=== PATIENT | female | born 1955 | race Caucasian/White ===

== ENCOUNTER → 2023-10-02 09:38 | Outpatient (REF) | payer OTHER, SELFPAY ==
[2023-10-02 10:11] LABS: % Basophils 0.5 % (0-2); % Eosinophils 0.8 % (0-6); % Immature Granulocytes 0.3 % (0-0.5); % Lymphocytes 19.5 % (20.5-51.1); % Monocytes 7.5 % (1.7-9.3); % Neutrophils 71.4 % (42.2-75.2); Absolute Eosinophils 0.1 10^3/uL (0-0.7); Absolute Lymphocytes 1.5 10^3/uL (1.2-3.4); Absolute Monocytes 0.6 10^3/uL (0.1-0.6); Absolute Neutrophils 5.5 10^3/uL (1.4-6.5); Hematocrit 38.8 % (37.0-47.0); Hemoglobin 12.8 g/dL (12.0-16.0); Mean Corpuscular Hgb 32.2 pg (27.0-31.0); Mean Corpuscular Volume 97.5 fL (81.0-99.0); Mean Platelet Volume 8.6 fL (7.4-10.4); Nucleated Red Blood Cells % 0 %; Platelet Count 385 10^3/uL (130-400); Red Blood Cell Count 3.98 10^6/uL (4.20-5.40); White Blood Cell Count 7.7 10^3/uL (4.8-10.8)
[2023-10-02 10:58] LABS: Blood Urea Nitrogen 17 mg/dl (7-17); Calcium 9.4 mg/dl (8.4-10.2); Carbon Dioxide 25 mmol/L (22-30); Chloride 100 mmol/L (98-107); Glucose 113 mg/dl (70-99); Potassium 4.2 mmol/L (3.5-5.1); Sodium 137 mmol/L (135-145); eGFR > 60.00
== END ==
LOC: REG 09:38
PROVIDERS: ATTENDING PHYSICIAN Specialist; FAMILY PHYSICIAN Internal Medicine Geriatric Medicine
DX: Z01.818 Encounter for other preprocedural examination (principal)
CPT/HCPCS: 36415; 80048; 85025

== ENCOUNTER → 2024-03-05 07:40 | Outpatient (REF) | payer OTHER, SELFPAY | LOC: HWRAD 07:40 | PROVIDERS: ATTENDING PHYSICIAN Internal Medicine Geriatric Medicine | DX: E04.1 Nontoxic single thyroid nodule (principal) | CPT/HCPCS: 76536 ==

== ENCOUNTER → 2024-03-24 09:42 | Outpatient (REF) | payer OTHER, SELFPAY ==
[2024-03-24 10:49] LABS: % Basophils 0.9 % (0-2); % Eosinophils 0.9 % (0-6); % Immature Granulocytes 0.2 % (0-0.5); % Lymphocytes 22.3 % (20.5-51.1); % Monocytes 7.7 % (1.7-9.3); Absolute Basophils 0.1 10^3/uL (0-0.2); Absolute Eosinophils 0.1 10^3/uL (0-0.7); Absolute Lymphocytes 1.3 10^3/uL (1.2-3.4); Absolute Monocytes 0.4 10^3/uL (0.1-0.6); Absolute Neutrophils 3.9 10^3/uL (1.4-6.5); Hematocrit 38.2 % (37.0-47.0); Hemoglobin 12.9 g/dL (12.0-16.0); Mean Corp Hgb Conc. 33.8 g/dL (33.0-37.0); Mean Corpuscular Hgb 31.4 pg (27.0-31.0); Mean Corpuscular Volume 92.9 fL (81.0-99.0); Nucleated Red Blood Cells % 0 %; Platelet Count 301 10^3/uL (130-400); Red Blood Cell Count 4.11 10^6/uL (4.20-5.40); Red Cell Dist. Width 13.1 % (11.5-14.5); White Blood Cell Count 5.7 10^3/uL (4.8-10.8)
[2024-03-24 10:57] LABS: Urine Albumin Negative (Neg - Trace); Urine Bilirubin Negative (Negative); Urine Character Clear (Clear); Urine Color Yellow; Urine Glucose Negative (Negative); Urine Ketone Negative (Negative); Urine Leukocyte Trace (Negative); Urine Nitrite Negative (Negative); Urine Occult Blood Negative (Negative); Urine Urobilinogen Negative (Neg - 1+)
[2024-03-24 11:20] LABS: ALT (SGPT) 23 U/L (0-35); AST (SGOT) 25 U/L (14-36); Albumin 4.7 g/dl (3.5-5.0); Alkaline Phosphatase 64 U/L (38-126); Blood Urea Nitrogen 13 mg/dl (7-17); Calcium 9.7 mg/dl (8.4-10.2); Chloride 104 mmol/L (98-107); Glucose 100 mg/dl (70-99); HDL Cholesterol 59 mg/dl; LDL Cholesterol, Calculated 80 mg/dl; Potassium 4.7 mmol/L (3.5-5.1); Sodium 138 mmol/L (135-145); Total Bilirubin 0.7 mg/dl (0.2-1.3); Total Cholesterol 154 mg/dl (50-199); Total Protein 6.8 g/dl (6.3-8.2); Triglyceride 78 mg/dl (10-149); Very Low Density Lipoprotein 15 mg/dl (0-30); eGFR > 60.00
[2024-03-24 11:30] LABS: Carbon Dioxide 25 mmol/L (22-30)
[2024-03-24 11:39] LABS: Vitamin D, 25-OH*** 59.6 ng/mL (30-80)
[2024-03-24 11:52] LABS: TSH 0.98 uIU/ml (0.47-4.68)
[2024-03-24 11:56] LABS: Urine Urothelial Cell 0-2 /LPF (FEW)
[2024-03-24 11:57] LABS: Urine Amorphous Seen; Urine Red Blood Cell 0-2 /HPF (0-2)
== END ==
LOC: REG 09:42
PROVIDERS: ATTENDING PHYSICIAN Specialist; FAMILY PHYSICIAN Internal Medicine Geriatric Medicine
DX: Z00.00 Encounter for general adult medical examination without abnormal findings (principal); E78.2 Mixed hyperlipidemia; M16.11 Unilateral primary osteoarthritis, right hip; J45.20 Mild intermittent asthma, uncomplicated; J30.9 Allergic rhinitis, unspecified; M85.89 Other specified disorders of bone density and structure, multiple sites; E04.1 Nontoxic single thyroid nodule; Q63.1 Lobulated, fused and horseshoe kidney; E78.00 Pure hypercholesterolemia, unspecified; Z01.818 Encounter for other preprocedural examination
CPT/HCPCS: 80048; 80053; 80061; 81003; 81015; 82306; 84443; 85025

== ENCOUNTER → 2024-03-25 12:48 | Outpatient (REF) | payer OTHER, SELFPAY ==
[2024-03-25 13:05] VITALS: BP 121/66; BP_SYST 73
== END ==
LOC: RADI 12:48
PROVIDERS: ATTENDING PHYSICIAN Internal Medicine Geriatric Medicine
DX: E04.1 Nontoxic single thyroid nodule (principal)
CPT/HCPCS: 88173; 10005

== ENCOUNTER → 2024-06-22 14:04 | Outpatient (REF) | payer OTHER, SELFPAY | LOC: RAD 14:04 | PROVIDERS: ATTENDING PHYSICIAN Internal Medicine Geriatric Medicine | DX: E04.1 Nontoxic single thyroid nodule (principal) | CPT/HCPCS: 76536 ==

== ENCOUNTER → 2024-12-04 08:46 | Outpatient (REF) | payer OTHER, SELFPAY | LOC: HWRAD 08:46 | PROVIDERS: ATTENDING PHYSICIAN Nurse Practitioner Family; FAMILY PHYSICIAN Internal Medicine Geriatric Medicine | DX: E04.2 Nontoxic multinodular goiter (principal) | CPT/HCPCS: 76536 ==

== ENCOUNTER → 2025-01-01 09:25 | Outpatient (REF) | payer OTHER, SELFPAY | LOC: HWWDC 09:25 | PROVIDERS: ATTENDING PHYSICIAN Nurse Practitioner Family; FAMILY PHYSICIAN Internal Medicine Geriatric Medicine | DX: Z12.31 Encounter for screening mammogram for malignant neoplasm of breast (principal) | CPT/HCPCS: 77063; 77067 ==

== ENCOUNTER → 2025-07-22 12:53 | Outpatient (REF) | payer OTHER, SELFPAY | LOC: HWRAD 12:53 | PROVIDERS: ATTENDING PHYSICIAN Nurse Practitioner Family; FAMILY PHYSICIAN Internal Medicine Geriatric Medicine | DX: E04.2 Nontoxic multinodular goiter (principal) | CPT/HCPCS: 76536 ==